=== PATIENT | female | born 1945 | race Caucasian/White ===

== ENCOUNTER 2024-03-17 06:28 | Observation (INO) ==
--- NOTE | 2024-02-04 11:32 | PAT Medication Instructions ---
Medication Instructions Date of Service February 04, 2024 Home Medications amlodipine 2.5 mg tablet 2.5 mg PO QAM diphenhydramine 25 mg-acetaminophen 500 mg tablet (Tylenol PM Extra Strength) 2 tab PO HS PRN inulin 2 gram chewable tablet (Fiber Gummies) 4 g PO QAM lisinopril 20 mg tablet 20 mg PO QAM multivitamin 1 cap PO QAM pravastatin 40 mg tablet 40 mg PO QAM DO NOT take the morning of surgery inulin 2 gram chewable tablet (Fiber Gummies) 4 g PO QAM lisinopril 20 mg tablet 20 mg PO QAM multivitamin 1 cap PO QAM Take morning of surgery With a small sip of water, OTHERWISE NOTHING TO EAT OR DRINK AFTER MIDNIGHT: amlodipine 2.5 mg tablet 2.5 mg PO QAM pravastatin 40 mg tablet 40 mg PO QAM Take evening before surgery diphenhydramine 25 mg-acetaminophen 500 mg tablet (Tylenol PM Extra Strength) 2 tab PO HS PRN(if needed) Other Notes If you have any questions please call us at [phone] or [phone] or [phone] or [phone]
--- NOTE | 2024-02-14 10:56 | Anesthesiology Consultation ---
Date of Service February 14, 2024 Assessment & Plan (1) Encounter for pre-operative examination: - awaiting stress test 02/19/24. - stress test ordered by [facility] cardiology but not yet completed. Case discussed in detail with Dr. Kelly who advised stress test is needed prior to surgery, a dvised clearance is not needed. Patient made aware, she states will call [facility] cardiology. Surgeon's office made aware. - cardiology office visit 11/15/23 [facility]: "...lbbb, echo normal EF...recent moved from 3 story building to one level. Shortness of breath with exertion...shortness of breath when going up stairs...nuclear stress test ordered..." - Outpatient joint assessment: Patient is currently scheduled for inpatient pathway. If re-evaluated and patient/surgeon requests outpatient pathway, patient is not advised candidate for outpatient joint program from [facility]. Chart Review Chart Review: Pending: Refer to Additional Notes / Consult section and Patient seen in Pre Admission Testing Teaching & Discussion Pre-Anesthesia Teaching/Discussion Notes: Instructed NPO after midnight before surgery, except medications with 15 cc of water. Medication instructions provided according to the PAT guidelines. p History Surgery Operation Date: 03/17/24 09:15 Proposed Procedures p Left Total Hip Arthroplasty Anterior - Jose Cade, Height/Weight Height: 5 ft 7 in Weight: 73.6 kg Allergies Allergy/AdvReac Type Severity Reaction Status Date / Time No Known Allergies Allergy Verified 02/01/24 14:25 Medications Home Medications Medication Instructions Recorded Confirmed Last Taken amlodipine 2.5 mg tablet 2.5 mg PO QAM 02/01/24 02/01/24 Unknown diphenhydramine 25 2 tab PO HS PRN Sleep 02/01/24 02/01/24 Unknown mg-acetaminophen 500 mg tablet (Tylenol PM Extra Strength) inulin 2 gram chewable tablet 4 g PO QAM 02/01/24 02/01/24 Unknown (Fiber Gummies) lisinopril 20 mg tablet 20 mg PO QAM 02/01/24 02/01/24 Unknown multivitamin 1 cap PO QAM 02/01/24 02/01/24 Unknown pravastatin 40 mg tablet 40 mg PO QAM 02/01/24 02/01/24 Unknown ibuprofen 200 mg tablet 200 mg PO Q6H PRN Pain 02/14/24 02/14/24 Unknown Additional Notes: Patient reports taking ibuprofen prn pain. She was instructed to follow surgeon's instructions on NSAIDs. She states has already received that information, denied questions, concerns or additional medications. Past Medical History Medical History Hyperlipidemia Hypertension controlled, stable per pt LBBB (left bundle branch block) Seen by [facility] cardio, echo 03/2023 Nuclear stress test ordered per 10/2023 [facility] cardio visit-not completed as pt states was not aware Low tolerance to pain medication "sensitive to all meds" Osteoarthritis of left hip Patient denies h/o stroke, seizures, heart attack, heart failure, DM, blood clots/DVTs or blood transfusions. Exercise / Class Metabolic Activity III < 4 Walking/Shop/Light housework (ambulates with cane, denies chest discomfort or shortness of breath with usual activities) Past Surgical History Surgical History History of anesthesia reaction "Manic" after jaw surgery History of mandibular surgery (1989) Jaw wired shut (r/t fracture) Hx of ovarian cystectomy (1989) Hx of tonsillectomy (1950) Past Anesthesia History No Family Hx of Anesthesia Complications and Other (see above) History of PONV No Hx of Motion Sickness and History of PONV (denies needing scop patch) Social History Smoking Status: Never smoker Do You Dip or Chew Tobacco: No Hx Alcohol Use: Yes alcohol intake frequency: holidays/special occasions only Hx Substance Use: No substance use type: does not use Review of Systems Patient denies chest pain, shortness of breath, dyspnea on exertion, snoring, witnessed apneas, reflux, fever, chills, cough, wheezing, or palpitations. Physical Exam Vital Signs Vitals BP 132/81 P 89 SP02 96% on RA RESP 18 Physical Patient resting comfortably in chair in no acute distress, alert and oriented, responding appropriately throughout visit Full cervical extension range of motion without pain TMD 3.5 finger breadths Mallampati Score 2 Dentition: several crowns/caps, denies chipped or loose teeth, implants or bridges Lungs: normal respiratory effort. Good air movement, clear throughout to auscultation, no adventitious breath sounds Cardiac: regular rate and rhythm, no murmurs noted Carotid arteries: negative bruit bilat Lab Results Anesthesia Preop Results Results Anesthesia Widget: WBC 5.31 K/ul (4.8-10.8) 02/14/24 Hgb 13.4 g/dl (12.0-16.0) 02/14/24 Hct 38.5 % (37.0-47.0) 02/14/24 Plt 277 K/uL (130-400) 02/14/24 Na 135 mmol/L (136-145) L 02/14/24 K 3.9 mmol/L (3.5-5.1) 02/14/24 Cl 99 mmol/L (98-107) 02/14/24 CO2 27 mmol/L (21-32) 02/14/24 BUN 14 mg/dl (6-23) 02/14/24 Creat 0.77 mg/dl (0.6-1.2) 02/14/24 Glucose Level 106 mg/dl (70-99(Fasting)) H 02/14/24 PT 10.8 Seconds (9.0-12.0) 02/14/24 PTT 24 Seconds (21-31) 02/14/24 INR 1.0 (0.9-1.1) 02/14/24 Blood Type O Negative 02/14/24 Antibody Screen NEGATIVE 02/14/24 Testing Electrocardiogram Date: 04/10/23 NSR, rate 88 bpm LBBB Chest X-Ray Date: 02/14/24 No acute process. Echocardiogram Date: 04/03/23 EF 60-64% Septal motion is abnormal consistent with intrventricular [sic] conduction delay Grade I diastolic dysfunction No valvular disease
--- NOTE | 2024-03-13 11:11 | History & Physical Report ---
Date of Service March 13, 2024 Assessment & Plan (1) Osteoarthritis of left hip: We will proceed with a left anterior total of arthroplasty. Postoperatively she will be started on aspirin for DVT prophylaxis and kept overnight in the hospital for postop medical management. She plans to use [facility] upon discharge. History of Present Illness Chief Complaint: Osteoarthritis left hip. Primary Care Provider: Olivier Munson MD Jeane is a pleasant 78-year-old female who has been dealing with chronic increasing left hip and groin pain. She is seeing another provider. X-rays and clinical examination have been diagnostic for advanced arthritis of the left hip. She has failed 2 injections and therapy with her hip. Had failed conservative treatment, she has elected proceed with a left total hip arthroplasty. Allergies Allergy/AdvReac Type Severity Reaction Status Date / Time No Known Allergies Allergy Verified 02/01/24 14:25 Home Medications Medication Instructions Recorded Confirmed Type amlodipine 2.5 mg tablet 2.5 mg PO QAM 02/01/24 02/01/24 History diphenhydramine 25 2 tab PO HS PRN Sleep 02/01/24 02/01/24 History mg-acetaminophen 500 mg tablet (Tylenol PM Extra Strength) inulin 2 gram chewable tablet 4 g PO QAM 02/01/24 02/01/24 History (Fiber Gummies) lisinopril 20 mg tablet 20 mg PO QAM 02/01/24 02/01/24 History multivitamin 1 cap PO QAM 02/01/24 02/01/24 History pravastatin 40 mg tablet 40 mg PO QAM 02/01/24 02/01/24 History ibuprofen 200 mg tablet 200 mg PO Q6H PRN Pain 02/14/24 02/14/24 History Past Med/Surg History Problem List Encounter for pre-operative examination Osteoarthritis of left hip Medical History LBBB (left bundle branch block) Seen by [facility] cardio, echo 03/2023 Nuclear stress test ordered per 10/2023 [facility] cardio visit-not completed as pt states was not aware Low tolerance to pain medication "sensitive to all meds" Hyperlipidemia Hypertension controlled, stable per pt Osteoarthritis of left hip Surgical History History of anesthesia reaction "Manic" after jaw surgery History of mandibular surgery (1989) Jaw wired shut (r/t fracture) Hx of ovarian cystectomy (1989) Hx of tonsillectomy (1950) Social History Smoking Status: Never smoker Second Hand Exposure: No; Do You Dip or Chew Tobacco: No; Tobacco Cessation Education Requested by Patient: No Hx Alcohol Use: Yes Hx Substance Use: No Preferred Language: Finnish Communication Ability: Effective Water Systems Engineer Required: No Beliefs That Will Affect Care: None Current Living Situation: Family Other Information That Helps Us Care for You: No Feels Safe at Home: Yes Safety Concerns: Feels Safe At This Time Assistive Devices: Cane Review of Systems All systems reviewed & are unremarkable except as noted in HPI & below. Physical Exam Physical examination left hip shows decreased range of motion. She has pain with forced internal/external rotation.. Constitutional WD/WN, vitals as above Eyes PERRL, conjunctivae normal, anicteric sclerae ENMT external ear and nose normal, oropharynx normal Neck trachea midline, no thyromegaly Respiratory normal respiratory effort Cardiovascular RRR, no murmur, no edema Gastrointestinal (Abdomen) normal bowel sounds, soft, nontender, no hepatosplenomegaly Psychiatric A+Ox3, euthymic affect Results & Data Results & Data Laboratory Results . Diagnostic Findings X-rays of the left hip show advanced osteoarthritis with joint space narrowing, osteophyte formation, and [id number]-[id number]-cvdv articulation. PG Care Time/CCT Total # of Minutes Spent Total Time Spent with Patient: Total time spent is greater than 50% in coordination of care (as documented) at patient's floor/unit and/or counseling patient: Coding Level of Care Code None Diagnoses Osteoarthritis of left hip M16.12
[~2024-03-17 06:28] MED LIST: ROPIVACAINE 0.5% 5 MG/ML 30 ML VIAL ONE
--- OUTSIDE RECORDS SUMMARY | 2024-03-17 06:32 | External Medical Summary | Summary of Care ---
Author Name Unknown Organization [facility] Address [address] [place] [address] Phone [phone] Care Team Providers Care Cushion Installer Name Role Phone Olivier Munson MD Primary Care Provider + Encounter Details Date Type Department Care Team (Late st Contact Info) Description 03/03/2024 Orders Only PATIENT PORTAL DO NOT DELETE THIS DEPT USED BY [facility] [id number] Allergies Active Allergy Reactions Criticality Noted Date Comments Amlodipine 09/30/2018 Does not tolerate higher doses (higher than 2.5 mg) Trazodone 04/02/2020 agitation documented as of this encounter (statuses as of 03/03/2024) Medications Medication Sig Dispensed Refills Start Date End Date Status Multiple Vitamins-Minerals (MULTIVITAMIN GUMMIES WOMENS) CHEW Take 1 Tab by mouth daily. Active Ibuprofen PM 200-25 MG Oral Capsule (Ibuprofen-diphenhyd rAMINE HCl) Take 2 Tablets by mouth at bedtime. Active Fiber Select Gummies Oral Tablet Chewable Take 2 Tablets by mouth in the morning. Active Tylenol PM Extra Strength 500-25 MG Oral Tablet (diphenhydrAMINE-APA P (sleep)) Take 1 Tablet by mouth 3 times a day as needed for Itching. Active Pravastatin Sodium 40 MG Oral Tablet (Pravachol)Indicatio ns:Dyslipidemia, goal LDL below 130 Take 1 Tablet by mouth every evening. 100 Tablet 3 02/29/2024 Active amLODIPine Besylate 2.5 MG Oral Tablet (Norvasc)Indications :HTN, goal below 140/90 Take 1 Tablet by mouth in the morning. 100 Tablet 3 02/29/2024 Active Lisinopril 20 MG Oral Tablet (Prinivil)Indication s:HTN, goal below 140/90 Take 2 Tablets by mouth in the morning. 200 Tablet 3 02/29/2024 Active documented as of this encounter (statuses as of 03/03/2024) Active Problems Problem Noted Date Diagnosed Date History of basal cell carcinoma 05/31/2017 Overview: 2016 left alar groove: Basal cell carcinoma, 2016 left cheek: Basal cell carcinoma, superficial type 2016 left jaw line: Basal cell carcinoma Onychomycosis 02/11/2016 HTN, goal below 140/90 10/13/2013 Osteoporosis 12/26/2011 Overview: 01/03 -2.3 High fracture risk. Declined Rx, further screening. 01/01 DEXA -2.5 hip Routine general medical exam ination at a health care facility 10/16/2011 Overview: 03/14 Need TTE (CXR) Etxddbi-vrsoyvmssz-Jncy 2014-brother's suicide, daughter moved in w/them--chronic back problems 09/06 mammo WNL. 2014 biopsy WNL. Had tdap 05/02 12/03 FOB WNL. Declined colonoscopy-consider in future, incomplete prep in 1011 COlonoscopy-incomplete prep 2011-DEXA -2.5 -pt declined meds martín 2y. On Ca Vit D Prefers Jeane [facility] -SEE -vac Dyslipidemia, goal LDL below 130 10/16/2011 documented as of this encounter (statuses as of 03/03/2024) Resolved Problems Problem Noted Date Diagnosed Date Resolved Date Encounter for examination fo r normal comparison and control in clinical research program 10/22/2018 02/23/2020 Overview: DO NOT DELETE [facility] DETECT Study: Project # [id number], Radiology Physician Assistant: Adria Acosta, PhD. SUMMARY: Goal: Establish test characteristics (sensitivity, specificity, PPV, NPV) of a circulating tumor DNA (ctDNA)-based test for cancer. Hypothesis: Circulating tumor DNA (ctDNA) and elevated protein biomarkers (together, the marker panel) can be detected in asymptomatic individuals with early cancer. Specific Aim 1: Determine the prevalence of a positive marker panel test in a prospective clinical cohort of 10,000 asymptomatic women ages 65 to 75 years. Specific Aim 2: Determine the sensitivity, specificity, positive predictive value (PPV) and negative predictive value (NPV) of a marker panel test to identify histologically proven cancers that develop within 5-years of the marker panel evaluation. CONTACTS: During normal business hours, contact study staff at ; after hours Radiology Physician Assistant via the [facility] hospital telephone exchange operator . Please contact study team before resolving/deleting from patients problem list. Study phone number: [phone]. Diagnosis changed due to Research Module. Go to Snapshot for study details. Encounter for examination fo r normal comparison and control in clinical research program 10/22/2018 03/23/2022 Overview: DO NOT DELETE - [facility] Study: Project # [id number], Radiology Physician Assistant: Rafiq Gonzalez, MS, MPH. SUMMARY: Goal: Establish test characteristics (sensitivity, specificity, PPV, NPV) of a circulating tumor DNA (ctDNA)-based test for cancer. - Hypothesis: Circulating tumor DNA (ctDNA) and elevated protein biomarkers (together, the marker panel) can be detected in asymptomatic individuals with early cancer. - Specific Aim 1: Determine the prevalence of a positive marker panel test in a prospective clinical cohort of 10,000 asymptomatic women ages 65 to 75 years. - Specific Aim 2: Determine the sensitivity, specificity, positive predictive value (PPV) and negative predictive value (NPV) of a marker panel test to identify histologically proven cancers that develop within 5-years of the marker panel evaluation. - CONTACTS: During normal business hours, contact study staff at ; after hours Radiology Physician Assistant via the [facility] hospital telephone exchange operator . - Please contact study team before resolving/deleting from patients problem list. Study phone number: [phone]. Diagnosis changed due to Research Module. Go to Snapshot for study details. Vitamin D deficiency 12/22/2013 019 Abnormal mammogram 07/31/2013 5 Overview: 09/06 mammo WNL 08/05 right breast calc-mag ordered--biopsy-benign fibroadenoma. Essential hypertension, benign 10/16/2011 10/28/2015 documented as of this encounter (statuses as of 03/03/2024) Immunizations Name Administration Dates Next Due COVID-19 mRNA, LNP-s, No Pre serve, 2-Dose Series (Moderna) 09/17/2020,08/20/2020 COVID-19, MRNA-LNP, 23-24, P F, 50 MCG/0.5 mL, 12 YRS AND ABOVE, IM (MODERNA-Spikevax) 12/02/2023 COVID-19, mRNA, LNP-s, PF, B ooster, 100mcg/0.5mg (Moderna) 10/24/2021,05/20/2021 Covid-19, Mrna, Lnp-s, Pf, B ivalent, 50 Mcg, IM, 12 yrs and above (Moderna) 08/20/2022,04/06/2022 PPD 04/22/2013 Pneumococcal Conjugate Vacc, 13 Valent (Prevnar) 02/11/2016 Pneumococcal Polysaccharide PPV23 (Pneumovax) 10/16/2011 RSV Vac., Bivalent, Perfusio n F, Pf,0.5 Ml (Abrysvo) 04/02/2023 Season Influenza, Quad, PF, Adjuvanted, 65+ Yrs, IM (FLUAD) 04/02/2023,04/01/2020 Seasonal Influenza, PF, 6 M & above, IM , (FluLaval or Fluzone) 04/30/2019,04/25/2018,05/07/2017 Seasonal Influenza, Quadriva lent Hd (Fluzone Hd) 04/25/2022,04/26/2021 Seasonal Influenza, Quadriva lent, No Preserve, IM 04/07/2016 Seasonal Influenza, Split, I IV3, With Preserve, Inj 04/13/2015,05/12/2014,04/22/2013,05/06,04/22/2011 TDAP (age 10 and older)(Boostrix) 02/14/2023 TDAP, Age 7 and older, IM (Adacel) 12/10/2009 Varicella Zoster Vaccine (Adult) 06/04/2012 Zoster Vaccine Recombinant (Shingrix) 11/09/2022 ,08/20/2022 documented as of this encounter Social History Tobacco Use Types Packs/Day Years Used Date Smoking Tobacco: Never Smokeless Tobacco: Never Alcohol Use Standard Drinks/Week Comments Never 0 (1 standard drink = 0.6 oz pur e alcohol) PHQ-2 Answer Date Recorded PHQ-2 Score -1 05/28/2018 Hunger Vital Sign Answer Date Recorded Within the past 12 months, y ou worried that your food would run out before you got the money to buy more. Never true 02/13/20 23 Within the past 12 months, t he food you bought just didn't last and you didn't have money to get more. Never true 02/12/2023 Childcare Answer Date Recorded Do you feel overwhelmed with taking care of a child, family member or friend? No 02/12/2023 Does your family need help f inding childcare? (Household - for ages 0-17 years) Not on file 02/12/2023 Clothing Answer Date Recorded Have you been unable to get clothing when it was really needed? No 02/12/2023 Is your family able to get c lothes or diapers when needed? (Household - for ages 0-17 years) Not on file 02/12/2023 Personal Safety Answer Date Recorded Do you feel unsafe or have concerns for your saf ety? No 02/12/2023 Do you have concerns for you r family's safety? (Household - for ages 0-17 years) Not on file 02/12/2023 Utilities Answer Date Recorded Do you have trouble paying y our heating, water, or electric bill? (Adult - for ages 18 years and over) Not on file 02/14/2024 Is your family able to pay t he heat, water, or electric bill? (Household - for ages 0-17 years) Not on file 02/14/2024 Does your family have access to good internet? (Household - for ages 0-17 years) Not on file 02/14/2024 Employment Status Answer Date Recorded Are you unemployed or without regular income? No 02/12/2023 Does the household have a re gular source of income? (Household - for ages 0-17 years) Not on file 02/12/2023 Social Connections Answer Date Recorded How often do you feel lonely or isolated from those around you? (Adult - for ages 18 years and over) Not on file 02/14/2024 Financial Resource Strain Answer Date R ecorded Do you have any trouble payi ng for your medications, or do you think you might in the future? No 02/12/2023 Does your family have troubl e paying for medicine? (Household - for ages 0-17 years) Not on file 02/12/2023 Transportation Needs Answer Date Record ed READ ONLY Do you have troubl e getting a ride to medical visits or work? Never True 02/12/2023 Does your family have a hard time getting a ride to doctors visits? (Household - for ages 0-17 years) Not on file 02/12/2023 Has lack of transportation k ept you from medical appointments, meetings, work, or from getting things needed for daily living? Check all that apply. (Adult - for ages 18 years and over) Not on file 02/12/2023 Do you (or your family) have trouble finding or paying for a ride (transportation)? (Household - for ages 0-17 years) Not on file 02/12/2023 Housing Stability Answer Date Recorded Do you currently live in a s helter or have no steady place to sleep at night? No 02/12/2023 READ ONLY Do you think you a re at risk of becoming homeless? No 02/12/2023 Does your family worry about paying for your home or becoming homeless? (Household - for ages 0-17 years) Not on file 0 02/12/2023 Are you homeless or worried that you might be in the future? (Adult - for ages 18 years and over) Not on file Are you (or your family) anay eless or worried that you might be in the future? (Household - for ages 0-17 years) Not on file Food Insecurity Answer Date Recorded Do you need food for this week? No 02/12/2023 Are you able to get enough f ood for your family? (Household - for ages 0-17 years) Not on file 02/12/2023 Does your family need food t his week? (Household - for ages 0-17 years) Not on file 02/12/2023 Do you always have enough fo od for your family? (Household - for ages 0-17 years) Not on file 02/12/2023 Sex and Gender Information Value Date Recorded Sex Assigned at Female 11/18/2021 11:18 AM EDT Gender Identity Female 11/18/2021 11:18 AM EDT Sexual Orientation Straight 11/18/2021 11 :18 AM EDT Job Start Date Occupation Industry Not on file Not on file Not on file documented as of this encounter Plan of Treatment Upcoming Encounters Date Type Department Care Team (Late st Contact Info) Description 04/21/2024 10:40 AM EDT Office Visit Family Practice [facility] [address] [address] Olivier Munson MD [address] [id number] 09/11/2024 11:00 AM EST Office Visit Dermatology [facility] [address] [place] [address] Sada Bernabe PA-C [address] [place] [address] 01/16/2025 8:15 AM EDT Office Visit Dermatology [facility] [address] [place] [address] Peter Rivera MD [address] [place] [address] Health Maintenance Due Date Last Done Comments Adult Wellness Visit 2012 *BISPHONATE OR OTHER ACCEPTABLE MEDICATION NEEDED FOR OSTEOPOROSIS (REFER TO SMARTSET #1146) 11/03/2016 Depression Screening 06/20/2019 06/20/2018 FOBT ANNUALLY,AGES 18-90 12/18/201912/17/ 019, 12/04/2016, 02/18/2016, Additional history exists Influenza Vaccine (FLU shot) (#1) 2024 04/02/2023, 04/25/2022, 04/26/2021, Additional history exists COVID-19 Vaccine ( season) 2024 12/02/2023, 08/20/2022, 04/06/2022, Additional history exists GFR 04/03/2024 04/03/2023, 01/21, 11/28/2021, Additional history exists Albumin/Creatinine Ratio 04/06/2026 04/06/2023 DTaP,Tdap,and Td Vaccines (3 - Td or Tdap) 02/14/2033 02/14/2023, 12/10/2009 Pneumococcal Vaccine: 65+ Years Completed 02/11/2016, 10/16/2011 Zoster Vaccines Completed 11/09/2022, 07/24, 06/04/2012 HPV (Gardasil) Vaccine Aged Out No lo nger eligible based on patient's age to complete this topic Hepatitis B Vaccine Aged Out No longe r eligible based on patient's age to complete this topic MENINGOCOCCAL (MENACTRA/MENVEO) Aged Out No longer eligible based on patient's age to complete this topic documented as of this encounter Medical Devices Not on filedocumented as of this encounter Advance Directives Documents on File Type Date Recorded Patient Gambling Dealer Expl anation Advance Directives and Living Will 05/23/2022 ADVANCE DIRECTIVE / LIVING WILL Care Teams Cushion Installer Relationship Specialty Start Date End Date Olivier Munson MD [address] [place] [address] PCP - General Family Medicine 08/25/14 documented as of this encounter
--- OUTSIDE RECORDS SUMMARY | 2024-03-17 06:32 | External Medical Summary | Summary of Care ---
Author Name Unknown Organization [facility] Address [address] [place] [address] Phone [phone] Care Team Providers Care Starch Cooker Name Role Phone Olivier Munson MD Primary Care Provider + Reason for Visit * Reason Onset Date Comments Advice 02/25/2024 Dr. Sellers Encounter Details Date Type Department Care Team (Late st Contact Info) Description 02/25/2024 Telephone Cardiology, [place] [address] [facility] [place] [address] Fely Sellers MD [address] [place] [address] Advice (Dr. Sellers) Allergies Active Allergy Reactions Criticality Noted Date Comments Amlodipine 09/30/2018 Does not tolerate higher doses (higher than 2.5 mg) Trazodone 04/02/2020 agitation documented as of this encounter (statuses as of 02/26/2024) Medications Medication Sig Dispensed Refills Start Date End Date Status Multiple Vitamins-Minerals (MULTIVITAMIN GUMMIES WOMENS) CHEW Take 1 Tab by mouth daily. Active amLODIPine Besylate 2.5 MG Oral Tablet (Norvasc)Indications :HTN, goal below 140/90 Take 1 Tablet by mouth in the morning. 100 Tablet 3 02/14/2023 Active Lisinopril 20 MG Oral Tablet (Prinivil)Indication s:HTN, goal below 140/90 Take 2 Tablets by mouth in the morning. 200 Tablet 3 02/14/2023 Active Pravastatin Sodium 40 MG Oral Tablet (Pravachol)Indicatio ns:Dyslipidemia, goal LDL below 130 Take 1 Tablet by mouth every evening. 100 Tablet 3 02/14/2023 Active Ibuprofen PM 200-25 MG Oral Capsule (Ibuprofen-diphenhyd rAMINE HCl) Take 2 Tablets by mouth at bedtime. Active Fiber Select Gummies Oral Tablet Chewable Take 2 Tablets by mouth in the morning. Active Tylenol PM Extra Strength 500-25 MG Oral Tablet (diphenhydrAMINE-APA P (sleep)) Take 1 Tablet by mouth 3 times a day as needed for Itching. Active documented as of this encounter (statuses as of 02/26/2024) Active Problems Problem Noted Date Diagnosed Date [...] facility 10/16/2011 Overview: 03/14 Need TTE (CXR) [facility] 2015-brother's suicide, daughter moved in w/them--chronic back problems 09/06 mammo WNL. 2013 biopsy WNL. Had tdap 05/02 12/03 FOB WNL. Declined colonoscopy-consider in future, incomplete prep in 1011 COlonoscopy-incomplete prep 2011-DEXA -2.5 -pt declined meds martín 2y. On Ca Vit D Prefers Jeane Mat-a -SEE -vac Dyslipidemia, goal LDL below 130 10/16/2011 documented as of this encounter (statuses as of 02/26/2024) Resolved Problems Problem Noted Date Diagnosed Date Resolved Date Encounter for examination fo r normal comparison and control in clinical research program 10/22/2018 02/23/2020 Overview: DO NOT DELETE [facility] DETECT Study: Project # [id number], Receiver/Laborer: Adria Acosta, PhD. SUMMARY: Goal: Establish test [...] contact study staff at ; after hours Receiver/Laborer via the [facility] transfer operator . Please contact study team before resolving/deleting from patients problem list. Study phone number: [phone]. Diagnosis changed due to Research Module. Go to Snapshot for study details. Encounter for examination fo r normal comparison and control in clinical research program 10/22/2018 03/23/2022 Overview: DO NOT DELETE - [facility] Study: Project # [id number], Receiver/Laborer: Rafiq Gonzalez, MS, MPH. SUMMARY: Goal: Establish [...] contact study staff at ; after hours Receiver/Laborer via the [facility] transfer operator . - Please contact study team before resolving/deleting from patients problem list. Study phone number: [phone]. Diagnosis changed due to Research Module. Go to Snapshot for study details. Vitamin D deficiency 12/22/2013 019 Abnormal mammogram 07/31/2013 5 Overview: 09/06 mammo WNL 08/05 right breast calc-mag ordered--biopsy-benign fibroadenoma. Essential hypertension, benign 10/16/2011 10/28/2015 documented as of this encounter (statuses as of 02/26/2024) Immunizations Name Administration Dates Next Due COVID-19 [...] on file documented as of this encounter Miscellaneous Notes * Telephone Encounter - Anusha George LPN - 02/26/2024 11:08 AM EDT Patient advised of result note via [employer] Message. Anusha George LPN * Telephone Encounter - Fely Sellers MD - 02/26/2024 9:45 AM EDT Nuclear stress test is negative for ischemia. No contraindication from cardiac standpoint for surgery * Telephone Encounter - Valentine Gasca OSA - 02/25/2024 1:30 PM EDT Person calling: Jeane Carey Relationship to patient: Self Number to return call: [phone] Reason for call(brief): Test Results Pharmacy: n/a Provider Name: Dr. Sellers Detailed message to office: Darleen, Patient called to for NM Stress test results completed on 02/19/24. Patient states that she has a procedure at the end of the month and needs to be cleared prior. Please advise. Thank you, DAVID Granda documented in this encounter Plan of Treatment Upcoming Encounters Date Type Department Care Team (Late st Contact Info) Description 04/21/2024 10:40 AM EDT Office Visit Family Practice [facility] [address] [place] [address] Olivier Munson MD [address] [place] [address] 09/11/2024 11:00 AM EST Office Visit Dermatology [facility] [address] [place] [address] Sada Bernabe PA-C [address] [facility] [place] [address] 01/16/2025 8:15 AM EDT Office Visit Dermatology [facility] [address] [place] [address] Peter Rivera MD [address] [facility] [place] [address] Health Maintenance Due Date Last Done Comments Adult Wellness Visit 2012 *BISPHONATE OR OTHER ACCEPTABLE MEDICATION NEEDED FOR OSTEOPOROSIS (REFER TO SMARTSET #1146) 11/03/2016 Depression Screening 06/20/2019 06/20/2018 FOBT ANNUALLY,AGES 18-90 12/18/2019 019, 12/04/2016, 02/18/2016, Additional history exists Influenza [...] Documents on File Type Date Recorded Patient Api Architect Expl anation Advance Directives and Living Will 05/23/2022 ADVANCE DIRECTIVE / LIVING WILL Care Teams Starch Cooker Relationship Specialty Start Date End Date Olivier Munson MD [address] [place] [address] PCP - General Family Medicine 08/25/14 documented as of this encounter
--- OUTSIDE RECORDS SUMMARY | 2024-03-17 06:32 | External Medical Summary | Summary of Care ---
Author Name Unknown Organization [facility] Address [address] [place] [address] Phone [phone] Care Team Providers Care Lime Burner Name Role Phone Olivier Grady MD Primary Care Provider + Reason for Visit * Reason Comments Medication Refill Encounter Details Date Type Department Care Team (Late st Contact Info) Description 02/28/[address] [facility] [address] [place] [address] Olivier Grady MD [address] [place] [address] Encounter for long-term (current) use of medications*; Dyslipidemia, goal LDL below 130; HTN, goal below 140/90 Allergies Active Allergy Reactions Criticality Noted Date Comments Amlodipine 09/30/2018 Does not tolerate higher doses (higher than 2.5 mg) Trazodone 04/02/2020 agitation documented as of this encounter (statuses as of 02/29/2024) Medications Medication Sig Dispensed Refills Start Date End Date Status Multiple Vitamins-Minerals (MULTIVITAMIN GUMMIES WOMENS) CHEW Take 1 Tab by mouth daily. Active Ibuprofen PM 200-25 MG Oral Capsule (Ibuprofen-diphen hydrAMINE HCl) Take 2 Tablets by mouth at bedtime. Active Fiber Select Gummies Oral Tablet Chewable Take 2 Tablets by mouth in the morning. Active Tylenol PM Extra Strength 500-25 MG Oral Tablet (diphenhydrAMINE- APAP (sleep)) Take 1 Tablet by mouth 3 times a day as needed for Itching. Active Pravastatin Sodium 40 MG Oral Tablet (Pravachol)Indica tions:Dyslipidemi a, goal LDL below 130 Take 1 Tablet by mouth every evening. 100 Tablet 3 02/29/2024 Active amLODIPine Besylate 2.5 MG Oral Tablet (Norvasc)Indicati ons:HTN, goal below 140/90 Take 1 Tablet by mouth in the morning. 100 Tablet 3 02/29/2024 Active Lisinopril 20 MG Oral Tablet (Prinivil)Indicat ions:HTN, goal below 140/90 Take 2 Tablets by mouth in the morning. 200 Tablet 3 02/29/2024 Active amLODIPine Besylate 2.5 MG Oral Tablet (Norvasc)Indicati ons:HTN, goal below 140/90 Take 1 Tablet by mouth in the morning. 100 Tablet 3 02/14/2023 02/28/2024 Discontinued (Refill) Lisinopril 20 MG Oral Tablet (Prinivil)Indicat ions:HTN, goal below 140/90 Take 2 Tablets by mouth in the morning. 200 Tablet 3 02/14/2023 02/28/2024 Discontinued (Refill) Pravastatin Sodium 40 MG Oral Tablet (Pravachol)Indica tions:Dyslipidemi a, goal LDL below 130 Take 1 Tablet by mouth every evening. 100 Tablet 3 02/14/2023 02/28/2024 Discontinued (Refill) documented as of this encounter (statuses as of 02/29/2024) Active Problems Problem Noted Date Diagnosed Date History of basal cell carcinoma 05/31/2017 Overview: 2016 left alar groove: Basal cell carcinoma, 2017 left cheek: Basal cell carcinoma, superficial type 2016 left jaw line: Basal cell carcinoma Onychomycosis 02/11/2016 HTN, goal below 140/90 10/13/2013 Osteoporosis 12/26/2011 Overview: 01/03 -2.3 High fracture risk. Declined Rx, further screening. 01/01 DEXA -2.5 hip Routine general medical exam ination at a health care facility 10/16/2011 Overview: 03/14 Need TTE (CXR) [facility]-O[facility] 2014-brother's suicide, daughter moved in w/them--chronic back problems 09/06 mammo WNL. 2014 biopsy WNL. Had tdap 05/02 12/03 FOB WNL. Declined colonoscopy-consider in future, incomplete prep in 1011 COlonoscopy-incomplete prep 2011-DEXA -2.5 -pt declined meds martín 2y. On Ca Vit D Prefers Jeane Mat-a -SEE -vac Dyslipidemia, goal LDL below 130 10/16/2011 documented as of this encounter (statuses as of 02/29/2024) Resolved Problems Problem Noted Date Diagnosed Date Resolved Date Encounter for examination fo r normal comparison and control in clinical research program 10/22/2018 02/23/2020 Overview: DO NOT DELETE [employer] DETECT Study: Project # [id number], Phone Circuit Operator: Adria Acosta, PhD. SUMMARY: Goal: Establish test [...] contact study staff at ; after hours Phone Circuit Operator via the [facility] hospital tufting machine operator . Please contact study team before resolving/deleting from patients problem list. Study phone number: [phone]. Diagnosis changed due to Research Module. Go to Snapshot for study details. Encounter for examination fo r normal comparison and control in clinical research program 10/22/2018 03/23/2022 Overview: DO NOT DELETE - [facility] DETECT Study: Project # [id number], Phone Circuit Operator: Rafiq Gonzalez, MS, MPH. SUMMARY: Goal: Establish [...] contact study staff at ; after hours Phone Circuit Operator via the [facility] hospital tufting machine operator . - Please contact study team before resolving/deleting from patients problem list. Study phone number: [phone]. Diagnosis changed due to Research Module. Go to Snapshot for study details. Vitamin D deficiency 12/22/2013 019 Abnormal mammogram 07/31/2013 5 Overview: 09/06 mammo WNL 08/05 right breast calc-mag ordered--biopsy-benign fibroadenoma. Essential hypertension, benign 10/16/2011 10/28/2015 documented as of this encounter (statuses as of 02/29/2024) Immunizations Name Administration Dates Next Due COVID-19 [...] encounter Miscellaneous Notes * Telephone Encounter - Melody Travis, [facility] - 02/29/2024 7:50 AM EDT Signed Prescriptions: Disp Refills Pravastatin Sodium 40 MG Oral Tablet (Prav*100 Ta*3 Sig: Take 1 Tablet by mouth every evening. Authorizing Provider: OLIVIER GRADY Ordering User: MELODY TRAVIS amLODIPine Besylate 2.5 MG Oral Tablet (No*100 Ta*3 Sig: Take 1 Tablet by mouth in the morning. Authorizing Provider: OLIVIER GRADY Ordering User: MELODY TRAVIS Lisinopril 20 MG Oral Tablet (Prinivil) 200 Ta*3 Sig: Take 2 Tablets by mouth in the morning. Authorizing Provider: OLIVIER GRADY Ordering User: MELODY TRAVIS * Telephone Encounter - Melody Travis [facility] - 02/29/2024 7:50 AM EDT Signed Prescriptions: Disp Refills Pravastatin Sodium 40 MG Oral Tablet (Prav*100 Ta*3 Sig: Take 1 Tablet by mouth every evening. Authorizing Provider: OLIVIER GRADY Ordering User: MELODY TRAVIS amLODIPine Besylate 2.5 MG Oral Tablet (No*100 Ta*3 Sig: Take 1 Tablet by mouth in the morning. Authorizing Provider: OLIVIER GRADY Ordering User: MELODY TRAVIS Lisinopril 20 MG Oral Tablet (Prinivil) 200 Ta*3 Sig: Take 2 Tablets by mouth in the morning. Authorizing Provider: OLIVIER GRADY Ordering User: MELODY TRAVIS * Telephone Encounter - Gabbie Lawson [facility] - 02/28/2024 9:20 AM EDT Did you pend patient's preferred pharmacy and medication before forwarding?yes Pharmacy: [facility] Pending Prescriptions: Disp Refills Pravastatin Sodium 40 MG Oral Tablet (Pra*100 Ta*3 Sig: Take 1 Tablet by mouth every evening. amLODIPine Besylate 2.5 MG Oral Tablet (N*100 Ta*3 Sig: Take 1 Tablet by mouth in the morning. Lisinopril 20 MG Oral Tablet (Prinivil) 200 Ta*3 Sig: Take 2 Tablets by mouth in the morning. Last Visit: 08/03/2023 (in office), 12/16/2020 (telemedicine) Next Visit: 04/21/2024 If no future appointments scheduled, and last appointment is greater than a year ago, please schedule patient for a follow-up appointment Last date the medication was ordered: 02/14/2023 Is this request for a controlled substance?No Urine Drug Screen:No results found for this or any previous visit. Patient Phone Numbers Labs: Lab Results Component Value Date/Time CREAT 0.9 04/03/2023 01:17 PM CREAT 0.9 04/01/2020 09:08 AM POTASSIUM 4.2 04/03/2023 01:17 PM POTASSIUM 3.9 04/01/2020 09:08 AM TSH 0.98 02/14/2023 01:24 PM LDLCALC 98 04/03/2023 01:17 PM LDLCALC 95 04/01/2020 09:08 AM LDLDIRECT NOT APPLICABLE 04/01/2020 09:08 AM * Telephone Encounter - Anabela Brown CPhT - 02/28/2024 6:19 AM EDT Pending Prescriptions: Disp Refills Pravastatin Sodium 40 MG Oral Tablet (Prav*100 Ta*3 Sig: Take 1Tablet by mouth every evening. amLODIPine Besylate 2.5 MG Oral Tablet (No*100 Ta*3 Sig: Take 1 Tablet by mouth in the morning. Lisinopril 20 MG Oral Tablet (Prinivil) 200 Ta*3 Sig: Take 2 Tablets by mouth in the morning. documented in this encounter Plan of Treatment Upcoming Encounters Date Type Department Care Team (Late st Contact Info) Description 04/21/2024 10:40 AM EDT Office Visit Family Practice [facility] [address] [place] [address] Olivier Grady MD [address] [place] [address] 09/11/2024 11:00 AM EST Office Visit Dermatology [facility] [address] [place] [address] Sada Bernabe PA-C [address] [facility] [place] [address] 01/16/2025 8:15 AM EDT Office Visit Dermatology [facility] [address] [place] [address] Peter Rivera MD [address] [facility] [place] [address] Scheduled Orders Name Type Priority Associated Diagnoses Orde r Schedule ALBUMIN / CREATININE RATIO, URINE Lab Routine HTN, goal below 140/90 Expected: 02/29/2024 (Approximate), Expires: 02/28/2025 CBC WITH WBC DIFFERENTIAL Lab Routine Encounter for long-term (current) use of medications Expected: 02/29/2024 (Approximate), Expires: 02/28/2025 COMPREHENSIVE METABOLIC PANEL Lab Routine Encounter for long-term (current) use of medications Expected: 02/29/2024 (Approximate), Expires: 02/28/2025 LIPID PANEL WITH DIRECT LDL IF TG IS HIGH Lab Routine Encounter for long-term (current) use of medications Expected: 02/29/2024 (Approximate), Expires: 02/28/2025 Health Maintenance Due Date Last Done Comments Adult Wellness Visit 2012 *BISPHONATE OR OTHER ACCEPTABLE MEDICATION NEEDED FOR OSTEOPOROSIS (REFER TO SMARTSET #1146) 11/03/2016 Depression Screening 06/20/2019 06/20/2018 FOBT ANNUALLY,AGES 18-90 12/18/2019 019, 12/04/2016, 02/18/2016, Additional history exists Influenza Vaccine (FLU shot) (#1) 2024 04/02/2023, 04/25/2022, 04/26/2021, Additional history exists COVID-19 Vaccine (2022-24 season) 2024 12/02/2023, 08/20/2022, 04/06/2022, Additional history [...] Not on filedocumented as of this encounter Visit Diagnoses Diagnosis Encounter for long-term (current) use of medications- Primary Encounter for long-term (current) use of other medications Dyslipidemia, goal LDL below 130 Other and unspecified hyperlipidemia HTN, goal below 140/90 Unspecified essential hypertension documented in this encounter Advance Directives Documents on File Type Date Recorded Patient Cut Off Saw Operator Metal Expl anation Advance Directives and Living Will 05/23/2022 ADVANCE DIRECTIVE / LIVING WILL Care Teams Lime Burner Relationship Specialty Start Date End Date Olivier Grady MD [address] [place] [address] PCP - General Family Medicine 08/25/14 documented as of this encounter
--- OUTSIDE RECORDS SUMMARY | 2024-03-17 06:32 | External Medical Summary | Summary of Care ---
Author Name Unknown Organization [facility] Address [address] [place] [address] Phone [phone] Care Team Providers Care Fabric Worker Fitter Name Role Phone Olivier Munson MD Primary Care Provider + Reason for Visit * Precert (Within 10 days (routine)) - Pending Review Specialty Diagnoses / Procedures Referred By Contac t Referred To Contact Radiology Diagnoses LBBB (left bundle branch block) Essential hypertension with goal blood pressure less than 140/90 Procedures NM MYOCARD PERF IMG SPECT MULT STUDIES WITH PHARM INTERV Fely Sellers MD [address] [place] [address] Referral ID Status Reason Start Date Expiration Date Visits Requested Visits Authorized [id number] Pending Review Precert 11/15/2023 [id number] Encounter Details Date Type Department Care Team (Latest Contact Info) Description 02/19/2024 7:43 AM EDT - 02/19/2024 11:59 PM EDT Hospital Encounter Radiology, [address] [address] Discharge Disposition: Home - Self Care Allergies Active Allergy Reactions Criticality Noted Date Comments Amlodipine 09/30/2018 Does not tolerate higher doses (higher than 2.5 mg) Trazodone 04/02/2020 agitation documented as of this encounter (statuses as of 02/20/2024) Medications Medication Sig Dispensed Refills Start Date [...] a day as needed for Itching. Active Hospital, Clinic, or Other Facility Administered Medication Ordered Dose Route Frequency Start Date End Date Status Regadenoson (Lexiscan) inj 0.4 mgIndications:SOB (shortness of breath) on exertion 0.4 mg IV PUSH ONCE 02/19/2024 02/19/2024 Ended sodium chloride 0.9 % flush/inj 10 mLIndications:SOB (shortness of breath) on exertion 10 mL IV PUSH ONCE PRN 02/19/2024 02/19/2024 Ended documented as of this encounter (statuses as of 02/20/2024) Active Problems Problem Noted Date Diagnosed Date [...] facility 10/16/2011 Overview: 03/14 Need TTE (CXR) Hxryazy-cziycozxgh-Ipda 2014-brother's suicide, daughter moved in w/them--chronic back problems 09/06 mammo WNL. 2013 biopsy WNL. Had tdap 05/02 12/03 FOB WNL. Declined colonoscopy-consider in future, incomplete prep in 1012 COlonoscopy-incomplete prep 2011-DEXA -2.5 -pt declined meds martín 2y. On Ca Vit D Prefers Jeane Mat-[place] -SEE -vac Dyslipidemia, goal LDL below 130 10/16/2011 documented as of this encounter (statuses as of 02/20/2024) Resolved Problems Problem Noted Date Diagnosed Date Resolved Date Encounter for examination fo r normal comparison and control in clinical research program 10/22/2018 02/23/2020 [facility] [place] [facility] Study: Project # [id number], Roadability Machine Operator: Adria Acosta, PhD. SUMMARY: Goal: Establish [...] contact study staff at ; after hours Roadability Machine Operator via the [facility] hospital basket bottom machine operator . Please contact study team before resolving/deleting from patients problem list. Study phone number: [phone]. Diagnosis changed due to Research Module. Go to Snapshot for study details. Encounter for examination fo r normal comparison and control in clinical research program 10/22/2018 03/23/2022 Overview: DO NOT DELETE - [place] DETECT Study: Project # [id number], Roadability Machine Operator: Rafiq Gonzalez, MS, MPH. SUMMARY: Goal: [...] contact study staff at ; after hours Roadability Machine Operator via the [facility] hospital basket bottom machine operator . - Please contact study team before resolving/deleting from patients problem list. Study phone number: [phone]. Diagnosis changed due to Research Module. Go to Snapshot for study details. Vitamin D deficiency 12/22/2013 019 Abnormal mammogram 07/31/2013 5 Overview: 09/06 mammo WNL 08/05 right breast calc-mag ordered--biopsy-benign fibroadenoma. Essential hypertension, benign 10/16/2011 10/28/2015 documented as of this encounter (statuses as of 02/20/2024) Immunizations Name Administration Dates Next Due COVID-19 [...] 02/12/2023 Does the household have a re lar source of income? (Household - for ages [...] on file documented as of this encounter Last Filed Vital Signs Vital Sign Reading Time Taken Comments Blood Pressure 173/91 02/19/2024 9:19 AM EDT did not take meds this AM Pulse 80 02/19/2024 9:19 AM EDT Temperature - - Respiratory Rate - - Oxygen Saturation - - Inhaled Oxygen Concentration - - Weight - - Height - - Body Mass Index - - documented in this encounter Plan of Treatment Upcoming Encounters Date Type Department Care Team (Late st Contact Info) Description 04/21/2024 10:40 AM EDT Office Visit Family Practice [facility] [address] [place] [address] Olivier Munson MD [address] [place] [address] 09/11/2024 11:00 AM EST Office Visit Dermatology [facility] [address] [place] [address] Sada Bernabe PA-C [address] [facility] [place] [address] 01/16/2025 8:15 AM EDT Office Visit Dermatology [facility] [place] [address] [place] [address] Peter Rivera MD [address] [facility] [place] [address] Health Maintenance Due Date Last Done Comments *BISPHONATE OR OTHER ACCEPTABLE MEDICATION NEEDED FOR OSTEOPOROSIS (REFER TO SMARTSET #1146) 11/03/2016 Depression Screening 06/20/2019 06/20/2018 FOBT ANNUALLY,AGES 18-90 12/18/2019 019, 12/04/2016, 02/18/2016, Additional history exists Influenza Vaccine (FLU shot) (#1) 2024 04/02/2023, 04/25/2022, 04/26/2021, Additional history exists COVID-19 Vaccine (2022- season) 2024 12/02/2023, 08/20/2022, 04/06/2022, Additional history exists GFR 04/03/2024 04/03/2023, 01/21, 11/28/2021, Additional history exists Albumin/Creatinine Ratio 04/06/2026 04/06/2023 DTaP,Tdap,and Td Vaccines (3 - Td or Tdap) 02/14/2033 02/14/2023, 12/10/2009 *BASELINE EKG FOR HTN Completed 04/13/2015 Pneumococcal Vaccine: 65+ Years Completed 02/11/2016, 10/16/2011 Hepatitis C Screening Completed 12/26/2018 Zoster Vaccines Completed 11/09/2022, 07/24, 06/04/2012 HPV [...] Not on filedocumented as of this encounter Procedures Procedure Name Priority Date/Time Associated Diagnosis Comments NM MYOCARDIAL PERFUSION IMAGING SPECT MULTIPLE STUDIES WITH PHARMACOLOGIC INTERVENTION Routine 02/19/2024 12:53 PM EDT LBBB (left bundle branch block) Essential hypertension with goal blood pressure less than 140/90 documented in this encounter Visit Diagnoses Diagnosis SOB (shortness of breath) on exertion- Primary Shortness of breath documented in this encounter Administered Medications Inactive Administered Medications - up to 3 most recent administrations Medication Order MAR Action Action Date Dose Rate Site Regadenoson (Lexiscan) inj 0.4 mg 0.4 mg, IV Push, ONCE, On Sun02/19/24 at 0754, For 1 dose, Inject over 10 seconds with 5-10 ml saline flush immediately after, Cardiac Studies_HODHOV Given 02/19/2024 9:02 AM EDT 0.4 mg sodium chloride 0.9 % flush/inj 10 mL 10 mL, IV Push, ONCE PRN Other, For Nuclear Stress Only - To follow Lexiscan Administration, Starting on Sun02/19/24 at 0751, Until Sun02/19/24 at 0950, For 2 hours, 5-10 ml Saline Flush to Immediately Follow Lexiscan Injection, Cardiac Studies_HODHOV Given 02/19/2024 9:02 AM EDT 10 mL Technetium Tc 99m Sestamibi (Sestamibi) inj 28 millicurie 28 millicurie, Intravenous, ONCE, On Sun02/19/24 at 0759, For 1 dose, Radiology Medication Routing (Non-IR) Given 02/19/2024 7:59 AM EDT 28 millicuries Technetium Tc 99m Sestamibi (Sestamibi) inj 8 millicurie 8 millicurie, Intravenous, ONCE, On Sun02/19/24 at 0759, For 1 dose, Radiology Medication Routing (Non-IR) Given 02/19/2024 7:59 AM EDT 8 millicuries documented in this encounter Advance Directives Documents on File Type Date Recorded Patient Textile Broker Expl anation Advance Directives and Living Will 05/23/2022 ADVANCE DIRECTIVE / LIVING WILL Care Teams Fabric Worker Fitter Relationship Specialty Start Date End Date Olivier Munson MD [address] [place] [address] PCP - General Family Medicine 08/25/14 documented as of this encounter
--- OUTSIDE RECORDS SUMMARY | 2024-03-17 06:32 | External Medical Summary | Summary of Care ---
Author Name Unknown Organization [facility] Address [address] [place] [address] Phone [phone] Care Team Providers Care Earth Observations Chief Scientist Name Role Phone Olivier Munson MD Primary Care Provider + Reason for Visit * Reason Onset Date Comments Advice 02/25/2024 Dr. Sellers Encounter Details Date Type Department Care Team (Late st Contact Info) Description 02/25/2024 Telephone Cardiology, [place] [address] [facility] [place] [address] Fely Sellers MD [address] [place] [address] Advice (Dr. Sellers) Allergies Active [...] facility 10/16/2011 Overview: 03/14 Need TTE (CXR) Iojodoo-lnfwkdxxfi-Lnsk 2015-brother's suicide, daughter moved in w/them--chronic back [...] program 10/22/2018 02/23/2020 Overview: DO NOT DELETE [facility] DETECT Study: Project # [id number], Automobile Glass Technician: Adria Acosta, PhD. SUMMARY: Goal: Establish test [...] contact study staff at ; after hours Automobile Glass Technician via the [facility] shell sieve operator . Please contact study team before resolving/deleting from patients problem list. Study phone number: [phone]. Diagnosis changed due to Research Module. Go to Snapshot for study details. Encounter for examination fo r normal comparison and control in clinical research program 10/22/2018 03/23/2022 Overview: DO NOT DELETE - [facility] Study: Project # [id number], Automobile Glass Technician: Rafiq Gonzalez, MS, MPH. SUMMARY: Goal: Establish [...] contact study staff at ; after hours Automobile Glass Technician via the [facility] shell sieve operator . - Please contact study team before resolving/deleting from patients problem list. Study phone number: [phone]. Diagnosis changed due to Research Module. Go [...] EDT Patient advised of result note via [place] Message. Anusha George LPN * Telephone Encounter - Fely Sellers MD - 02/26/2024 9:45 AM EDT Nuclear stress test is negative for ischemia. No contraindication from cardiac standpoint for surgery * Telephone Encounter - Valentine Gasca OSA - 02/25/2024 1:30 PM EDT Person calling: Jeane Carey Relationship to patient: Self Number to return call: [phone] Reason for call(brief): Test Results Pharmacy: n/a [...] 10:40 AM EDT Office Visit Family Practice [facility] [address] [place] [address] Olivier Munson MD [address] [place] [address] 09/11/2024 11:00 AM EST Office Visit Dermatology [facility] [address] [place] [address] Sada Bernabe PA-C [address] [facility] [address] 01/16/2025 8:15 AM EDT Office Visit Dermatology [facility] [address] [place] [address] Peter Rivera MD [address] [place] [address] Health Maintenance Due Date Last Done Comments [...] Documents on File Type Date Recorded Patient Box Feeder Expl anation Advance Directives and Living Will 05/23/2022 ADVANCE DIRECTIVE / LIVING WILL Care Teams Earth Observations Chief Scientist Relationship Specialty Start Date End Date Olivier Munson MD [address] [place] [address] PCP - General Family Medicine 08/25/14 documented as of this encounter
--- NOTE | 2024-03-17 06:35 | History & Physical Bridge Note ---
Date of Service March 17, 2024 History & Physical Bridge Note I have examined the patient, reviewed the History & Physical and in the interval since the performance of the History & Physical I have noted the following changes of clinical significance: no changes noted
[2024-03-17] MEDS ORDERED: MIDAZOLAM HCL 1 MG/ML 2ML VIAL ONE (06:55)
[2024-03-17] MEDS ORDERED: fentaNYL citrate PF 100 MCG/2 ML VIAL ONE (06:55)
[2024-03-17] MEDS ORDERED: PROPOFOL IV EMULSION 10 MG/ML 20 ML VIAL IV ONE ×2 (06:56→08:24)
[2024-03-17] MEDS: LR 500ML BOLUS, THEN 15ML/HR IV SCH (07:11)
[2024-03-17] MEDS: GABAPENTIN 300 MG CAP PO SCH (07:12)
[2024-03-17] MEDS: dexAMETHasone**PF** 10 MG/ML VIAL IV SCH (07:12)
[2024-03-17] MEDS: ACETAMINOPHEN 500 MG TAB PO SCH ×2 (07:12→13:46)
[2024-03-17] MEDS: LR 60ML/HR IV SCH (07:12)
[2024-03-17] MEDS: FAMOTIDINE 20 MG TAB PO SCH (07:12)
[2024-03-17] MEDS ORDERED: ONDANSETRON INJ 2 MG/ML 2 ML VIAL IV PRN (07:41)
[2024-03-17] MEDS ORDERED: KETOROLAC 30 MG/ML VIAL IV PRN (07:41)
[2024-03-17] MEDS ORDERED: ePHEDrine sulfate 50 MG/ML AMP IV PRN (07:41)
[2024-03-17] MEDS ORDERED: ATROPINE SULFATE 0.1 MG/ML 10ML SYR IV PRN (07:41)
[2024-03-17] MEDS ORDERED: HYDROmorphone INJ 1 MG/ML SYRINGE IV PRN (07:41)
[2024-03-17] MEDS: TRANEXAMIC ACID 1,000 MG **IV Pre-op IV SCH (07:50)
[2024-03-17] MEDS: ceFAZolin 2000MG 2,000 MG/15 ML SYR IV SCH ×2 (08:02→15:09)
[2024-03-17] MEDS ORDERED: PHENYLEPHRINE 100MCG/ML 10ML SYR IV ONE (08:24)
[2024-03-17] MEDS ORDERED: ONDANSETRON INJ 2 MG/ML 2 ML VIAL ONE (08:24)
[2024-03-17] MEDS ORDERED: GLYCOPYRROLATE 0.2 MG/ML VIAL ONE (08:24)
[2024-03-17] MEDS: ROPIV 0.5% 246mg, Ketorolac 30mg, EPINEPHrine 0.5mg in NSS INFIL SCH (08:38)
[2024-03-17] MEDS: ORTHO JOINT ANESTHETIC ONE (08:39)
[2024-03-17] MEDS: TRANEXAMIC ACID 1,000 MG **IV Intra-op IV SCH (08:59)
--- NOTE | 2024-03-17 09:04 | Operative Report ---
PG Post Operative Report Pre & Post Diagnosis Operation Date: 03/17/24 08:00 Pre-Op Diagnosis: DJD Hip Left Post-Op Diagnosis: DJD Hip Left I identified the patient and participated in the time-out.: Yes Procedure Operation Date: 03/17/24 08:00 Actual Procedures p Left Anterior Total Hip Arthroplasty(Left) - Jose Cade DO Surgeon Jose Cade DO It Senior Software Engineer Java Jose Bolden PA-C Estimated Blood Loss 150 Findings Consistent with Post-Op Diagnosis Specimens Left femoral head Description of Procedure Implants used I used a ZimmerBiomet total hip arthroplasty system with a size 6 standard offset Avenir Complete stem, a 50 mm G7 cup with a 25mm screw, an E1 polyethylene liner, a 36 mm ceramic head with a 0 neck. Jeane arrived at the hospital for the above procedure. She was seen in the preoperative holding area and the operative extremity was identified and signed. She was given a spinal anesthetic, a preoperative antibiotic, and TXA. She was then taken back to the operating room and laid on the table in the supine position. She was given basic sedation. The operative leg was secured to a Puristst leg positioner. The hip was then prepped and draped in sterile fashion. A timeout was done and the patient and the operative extremity was properly identified. An anterior approach was used. Dissection was taken down through the fascia and the tensor muscle belly was retracted laterally and the rectus was retracted medially. The circumflex vessels were identified and ligated. The capsule was then incised and tagged for later repair. The femoral neck was then cut and the femoral head was removed. The acetabulum was exposed. Time was spent doing a complete circumferential labral release. Sequential reaming of the acetabulum up to a size 49 reamer was done. Final reamings were done under fluoroscopy to ensure appropriate version. A Biomet 50 mm G7 cup was then impacted into place. A single 25 mm screw was placed. The E1 polyethylene liner was then snapped into place. Surrounding soft tissues were then injected with 100 cc of an orthopedic pain control cocktail. The proximal femur was then exposed. Sequential broaching up to a size 6 broach was done. Off that broach a size 36 head with a 0 neck was trialed. The hip was reduced and fluoroscopic images showed anatomic alignment of the implants in acceptable length. The broach was removed. The final size 6 standard offset Avenir Complete stem was then impacted into place. A ceramic 36 mm head with a 0 neck was then impacted onto the stem and the hip was reduced. Final fluoroscopic images showed anatomic alignment of the hip. The capsule was then closed with #1 Vicryl suture. A dilute betadyne lavage was then done for 3 minutes. The joint was then irrigated with normal saline solution. The fascia was closed with #1 PDS suture. Skin was closed with 2-0 Vicryl, marquez, and a Silverlon dressing. She was then transferred to a hospital bed and taken to the post anesthesia care unit in stable condition. She tolerated the procedure well. Jose Bolden PA-C, was present for the entire procedure. He was critical for patient positioning, prepping, draping, retraction exposure, wound closure and application of sterile dressing. I attest to the content of the Intraoperative Record and any orders documented therein. Any exceptions are noted below.
--- NOTE | 2024-03-17 10:17 | XRay Report ---
AP PELVIS, CROSSTABLE LATERAL LEFT HIP History: Left total hip arthroplasty. Degenerative arthritis. Postop. FINDINGS: The patient is status post a left total hip arthroplasty. The hardware is intact. No fractu re or dislocation. Skin marquez are in place. IMPRESSION: Left total hip arthroplasty. No evidence for hardware complication. ACT 112: Negative or not required by law. Electronically signed by: Salas Che M.D. 03/17/2024 10:15 AM
[2024-03-17] MEDS ORDERED: NALOXONE HCL 0.4 MG/1 ML VIAL/CARP IV PRN (10:20)
[2024-03-17] MEDS ORDERED: NON-FORMULARY MEDICATION (Diphenhydramine-Acetaminophen [Tylenol Pm Extra Strength] 25-500 PO PRN (10:20)
[2024-03-17] MEDS ORDERED: MAGNESIUM HYDROXIDE SUSP 30 ML UDC PO PRN (10:20)
[2024-03-17] MEDS ORDERED: HYDROmorphone INJ 0.5 MG/0.5 ML SYR IV PRN (10:20)
[2024-03-17] MEDS ORDERED: bisacodyL 10 MG SUPP PR PRN (10:20)
[2024-03-17] MEDS: SODIUM CHLORIDE 0.9% 1,000 ML IV SCH (10:47)
[2024-03-17] MEDS: KETOROLAC TROMETHAMINE 15 MG/ML VIAL IV SCH (10:48)
--- NOTE | 2024-03-17 12:28 | Anesthesiology Progress Note ---
Date of Service March 17, 2024 Anesthesia Post Procedure Vital Signs Vital Signs: Temp Pulse Pulse Resp BP Pulse Ox O2 Del Method 03/17/24 12:24 36.1 C L 88 20 135/80 98 Room Air 03/17/24 11:19 35.8 C L 79 16 147/74 H 97 Room Air 03/17/24 10:46 36.2 C L 72 18 147/77 H 96 Room Air 03/17/24 10:15 36.4 C L 85 18 162/95 H 99 Room Air 03/17/24 10:00 36 C L 73 19 138/70 98 Room Air 03/17/24 09:50 77 14 133/64 96 Room Air 03/17/24 09:40 75 19 118/66 98 Room Air 03/17/24 09:30 77 18 104/51 L 99 Room Air 03/17/24 09:22 36.7 C 81 18 126/61 97 Room Air 03/17/24 06:47 36.7 C 91 H 20 171/91 H 93 Room Air Transfer of Care Handoff Completed per policy Notes Mental Status: alert / awake / arousable Patient Amnestic to Procedure: Yes Nausea / Vomiting: adequately controlled Pain: adequately controlled Airway Patency, RR, SpO2: stable & adequate BP & HR: stable & adequate Hydration State: stable & adequate Neuraxial Anesthesia: was administered and sensory block is resolving Anesthetic Complications: no major complications apparent
[2024-03-17] MEDS: oxyCODONE HCL IR 5 MG TAB (IMMEDIATE RELEASE) PO PRN (15:08)
--- NOTE | 2024-03-17 15:22 | Fluoroscopy Report ---
INTRAOPERATIVE RADIOGRAPH CLINICAL HISTORY: Left hip arthroplasty. Fluoro time: 14 seconds Ka,r: 1.36 mGy FINDINGS: A single spot fluoroscopic image of the left hip is correlated with radiographs dated 2023. A bipolar left hip arthroplasty is in near anatomic alignment. A single cortical lag screw corrales sfixes the acetabular cup. There is no evidence of acute fracture on this fluoroscopic view. IMPRESSION: Intraoperative image from a left hip arthroplasty procedure. Electronically signed by: Lee Renteria M.D. 03/17/2024 3:20 PM
[2024-03-17] MEDS: ONDANSETRON INJ 2 MG/ML 2 ML VIAL IV PRN (16:46)
[2024-03-17] MEDS: METOCLOPRAMIDE HCL INJ 5 MG/ML 2 ML VIAL IV PRN (17:45)
[2024-03-17] MEDS: SCOPOLAMINE 1 MG/72 HR TDSY PATCH TD SCH (18:01)
[2024-03-17] MEDS: ASPIRIN 81 MG ECTAB PO SCH (20:05)
[2024-03-17] MEDS: SENNA 8.6 MG TAB PO SCH (20:05)
[2024-03-17] MEDS: DOCUSATE SODIUM 100 MG CAP PO SCH (20:05)
[2024-03-17] MEDS: CHECK SCOPOLAMINE PATCH PLACEMENT SCH (23:53)
[2024-03-18 07:05] VITALS: BP 155/73; PULSE 65; RESP 18; TEMP 97.5; O2SAT 95
--- NOTE | 2024-03-18 07:06 | Discharge Summary ---
Date of Service March 18, 2024 Admission HPI (Per Admitting) Jeane is a pleasant 78-year-old female who has been dealing with chronic increasing left hip and groin pain. She is seeing another provider. X-rays and clinical examination have been diagnostic for advanced arthritis of the left hip. She has failed 2 injections and therapy with her hip. Had failed conservative treatment, she has elected proceed with a left total hip arthroplasty. Admission Exam (Per Admitting) Physical examination left hip shows decreased range of motion. She has pain with forced internal/external rotation.. Principal Diagnosis Same as "Discharge Diagnosis" noted below under Discharge Instructions. Discharge Exam On physical examination left hip, the dressing is clean and dry. Her leg is out full extension. She has active dorsiflexion plantarflexion of her left ankle.. Discharge Data Procedures Performed Operation Date: 03/17/24 08:00 Actual Procedures p Left Anterior Total Hip Arthroplasty(Left) - Jose Cade DO Ordered Studies 03/17/24 08:00 FL hip LT 1V Routine Hospital Course (1) Status post left hip replacement: On March 17, 2024 Jeane arrived at [facility] and underwent a left hip replacement without complication. She had a spinal anesthetic. Postoperatively she was started on aspirin for DVT prophylaxis and transferred to the general orthopedic floors. Her hospital course was uneventful. On postop day #1, her vital signs were stable and her pain was well-controlled. She was able to participate well with physical therapy doing ambulation and range of motion exercises. She was then discharged home. She will follow-up with orthopedics in 2 weeks. PG Care Time/CCT Total # of Minutes Spent Total Time Spent with Patient: Total time spent is greater than 50% in coordination of care (as documented) at patient's floor/unit and/or counseling patient: Discharge Plan Discharge Items Patient Disposition: Home - Self-Care Reason For Visit: DJD Hip Left Discharge Diagnosis: Left hip replacement Activity: Per Instructions section Non-emergency contact: Surgeon Call non-emergency contact if: your wound has increased redness and your wound has increased drainage Follow-up/Referrals: Olivier Munson MD [Primary Care Provider] - Diet: Regular Addtl Attending Provider Instructions: Activity and Therapy Recommendations: * If you are using [facility] then therapy will be provided at your home until they feel you have accomplished all of your goals. * If you are using [facility] then Physical Therapy will be provided until they feel you are ready to start Outpatient Physical Therapy. * If you are not using home therapy then Outpatient Physical Therapy should start about 3-5 days from your day of surgery. Therapy will last about 6-10 weeks * You were shown a series of exercises in the hospital. Do these exercises three times each day including the exercises you were shown in physical therapy. * Get up and walk several times each day.~ For the first four weeks, try not to stand or walk for more than one hour at a time. If you do stand or walk for more than one hour, you will not hurt anything, but your leg will likely swell.~~ * As you feel comfortable, you may change from the walker or crutches to a cane and~then to independent walking. Medications: * Narcotic You will likely be sent home from the hospital with a prescription for the narcotic pain medication that worked best throughout your stay. * Cefadroxil -take the antibiotic twice a day for 10 days to help prevent infection. * Aspirin Most patients will be required to take Aspirin 81mg twice a day for 6 weeks after surgery. This is obtained [id number] and a prescription is not necessary. * Other medications may be prescribed for specific circumstances. If you have any questions, please call the office at . * Resume previous home medications unless otherwise instructed TEDs/Elastic Stockings: The white elastic stockings help limit swelling and prevent blood clots from forming in your legs. The more you wear them, the more they work. Wear them for six weeks. Dressing Care: Leave the Silverlon dressing in place for 7 days. After 7 days you may remove the dressing. If the incision is not draining then you may leave the marquez open to air. If there is a little bit of drainage or if the marquez are getting stuck on your clothing then cover the incision with a dry dressing. The marquez will be removed at your 2 week follow-up appointment. Showering: You may shower with the Silverlon dressing in place. Do not let the shower spray hit the dressing directly. Pat the Silverlon dressing dry. If the dressing becomes wet underneath, then simply remove the dressing. Keep the incision dry until you are 7 days out from the day of surgery. After 7 days you may remove the Silverlon dressing and shower with the marquez exposed. Let soapy water run over the marquez and pat them dry. Do not scrub or soak the incision. Things To Watch For: * Drainage from the incision site that occurs more than one week after your surgery. * Increased redness at the incision site. * Fever above 102 degrees Fahrenheit. * Unusual chest pain or shortness of breath. * Call [facility] at with any of the above problems Follow-Up Visit: Follow-up with Dr. Cade's PA (Jose Bolden) 2-3 weeks after your day of surgery. He will remove your marquez and answer any questions. If you have any additional questions or concerns, Dr Cade is usually in the office at the same time and will be available An appointment was probably scheduled when you signed-up for surgery in the office. If you have any questions call Office Instructions: More detailed instructions as well as Frequently Asked Questions were provided in a folder by our office when you signed-up for surgery. Please review these instructions when you get home. If you have any further questions or concerns, please feel free to call the office at [phone] Pending Studies at Discharge: No Stand-Alone Forms: My [facility], Smoking Cessation Medications and DC Order Prescriptions: New tramadol 50 mg tablet 50 mg PO Q6H PRN (Reason: pain) Qty: 30 0RF cefadroxil 500 mg capsule 500 mg PO BID 10 Days Qty: 20 0RF aspirin 81 mg Tablet,Delayed Release (Dr/Ec) 81 mg PO BID 42 Days Qty: 0 0RF Continued pravastatin 40 mg tablet 40 mg PO QAM lisinopril 20 mg tablet 20 mg PO QAM amlodipine 2.5 mg tablet 2.5 mg PO QAM diphenhydramine-acetaminophen [Tylenol PM Extra Strength] 25-500 mg Tablet 2 tab PO HS PRN (Reason: Sleep) multivitamin Capsule 1 cap PO QAM Fiber Gummies 2 gram Tablet,Chewable 4 g PO QAM ibuprofen 200 mg Tablet 200 mg PO Q6H PRN (Reason: Pain) Discharge Orders: Discharge Order (Routine); Ordered 03/18/24 Ordered By: Jose Cade Admission Data Admit Date/Time: 03/17/24 09:26 Attending Provider: Jose Cade Admit Provider: Jose Cade Primary Care Provider: Olivier Munson
--- NOTE | 2024-03-18 07:06 | Orthopedic Progress Note ---
Date of Service March 18, 2024 Assessment & Plan (1) Status post left hip replacement: Overall she is doing very well. She is not having much pain in the left hip. She will be seen by physical therapy today for ambulation and range of motion exercises. She is on aspirin for DVT prophylaxis. She can be discharged home later today. She will follow-up with orthopedics in 2 weeks. Subjective Was seen and examined at bedside this morning. Overall she is doing very well. She is not having much pain in the left hip. She has been up and ambulating to the bathroom. She has no complaints.. Review of Systems All systems reviewed & are unremarkable except as noted in HPI & below. Physical Exam On physical examination left hip, the dressing is clean and dry. Her leg is out full extension. She has active dorsiflexion plantarflexion of her left ankle.. Results & Data Results & Data Laboratory Results . Diagnostic Findings Postoperative x-rays of the left hip show the prosthesis to be in anatomic alignment without any evidence of fracture, dislocation, or loosening.. PG Care Time/CCT Total # of Minutes Spent Total Time Spent with Patient: Total time spent is greater than 50% in coordination of care (as documented) at patient's floor/unit and/or counseling patient: Coding Level of Care Code 44733 Post Operative Follow-Up Diagnoses Status post left hip replacement Z96.642
[2024-03-18] MEDS: PRAVASTATIN SOD 40 MG TAB PO SCH (08:47)
[2024-03-18] MEDS: amLODIPine BESYLATE 5 MG TAB PO SCH (08:47)
[2024-03-18] MEDS: dexAMETHasone 4 MG TAB PO SCH (08:49)
[2024-03-18] MEDS: MULTIVITAMIN TAB PO SCH (08:49)
[2024-03-18] MEDS: lisinopril 20 MG TAB PO SCH (08:50)
== END 2024-03-18 10:42 | disposition home or self-care (01) ==
LOC: ASU 06:28 → 3E 06:28